=== PATIENT | male | born 1975 | race Caucasian/White ===

== ENCOUNTER 2019-08-03 07:19 | Day surgery (SDC) | payer BC ==
[2019-08-02 12:40] VITALS: BMI 24.4
[2019-08-03] MEDS ORDERED: Bacitracin Zinc Ointment 30 gm TUBE ONE (09:06)
[2019-08-03] MEDS ORDERED: Lidocaine 1% w/Epinephrine 1:100K 20 ML VIAL ONE (09:06)
[2019-08-03] MEDS ORDERED: Fentanyl 100 MCG/2 ML VIAL ONE (09:09)
[2019-08-03] MEDS ORDERED: PROPOFOL 40 ML ONE (09:15)
[2019-08-03] MEDS ORDERED: Midazolam HCl 2 mg/2 ml Vial ONE (09:15)
[2019-08-03] MEDS ORDERED: Lidocaine 1% PF 5 ML VIAL ONE (09:39)
--- NOTE | 2019-08-04 09:25 | OP ---
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 PROCEDURES PERFORMED: 1. Wide local excision of right ear lesion. 2. Full-thickness skin graft from postauricular area to right ear, 2 cm2. ESTIMATED BLOOD LOSS: Less than 10 mL. COMPLICATIONS: None. ANESTHESIA: TIVA. DESCRIPTION OF PROCEDURE: The patient was taken to the operating room and placed supine on the table. TIVA anesthesia was obtained by the Anesthesia Staff. The patient was then prepped and draped in standard surgical fashion. 1% lidocaine with 1:100,000 epinephrine was injected into the right ear vero bowl. Following this, the 15 blade was used to take a 5-mm margin around the skin lesion and the margins were then sent for pathological analysis were noted to be free of any persistent tumor. Following this, based on the size of the lesion, it was determined that a full-thickness skin graft from the postauricular area would be best for closure. An elliptical incision was made and some postauricular skin and a full-thickness graft was harvested. Fat was trimmed and the graft was then sutured in place into the vero bowl defect. The postauricular skin graft donor site was then undermined and the skin was reapproximated using 5-0 Monocryl and 4-0 chromic gut stitches. The patient tolerated the procedure well. Job ID: [id number]
== END 2019-08-03 11:37 | disposition home or self-care (01) ==
LOC: SDC 07:19
PROVIDERS: ATTEND Otolaryngology Plastic Surgery within the Head & Neck
PROC: 0HR2X73 Replacement of Right Ear Skin with Autologous Tissue Substitute, Full Thickness, External Approach (ICD-10-PCS; principal; 2019-08-03)
DX: C44.212 Basal cell carcinoma of skin of right ear and external auricular canal (principal)
CPT/HCPCS: 88305; 88331; 93005; 93010; J2001; J2250; J2704; J3010